=== PATIENT | female | born 1960 | race Hispanic/Latino ===

== ENCOUNTER 2016-10-25 19:16 | Emergency (ER) | payer OTHER ==
[2016-10-25 19:16] VITALS: BMI 28.3
[2016-10-25 19:43] VITALS: BP 109/68; RESP 16; O2SAT 98
--- NOTE | 2016-10-25 21:04 | ED PDOC ---
Arrival/HPI - General Chief Complaint: Upper Extremity Problem/Injury Time Seen by Provider: 10/25/16 19:51 Historian: Patient - History of Present Illness Narrative History of Present Illness (Text): 10/25/16 19:51 A 56 year old female prsents to the emergency department complaining of some discomfort to the right third digit after getting it caught in a door earlier today. Patient says she is able to move the finger but with discomfort. Patient reports history of of slight swelling to the finger due to a pervious injury. She states she has a ring on her finger which is tight and may be contributing to the finger problems as well. She denies any other injury at this time. PMD: Dr. Chowdhuyr Time/Duration: 1-3 hours Symptom Onset: Sudden Symptom Course: Unchanged Quality: Other Activities at Onset: Rest Context: Home Past Medical History - Provider Review Nursing Documentation Reviewed: Yes - Infectious Disease Hx of Infectious Diseases: None - Tetanus Immunization Tetanus Immunization: Unknown - Cardiac Hx Cardiac Disorders: No - Pulmonary Hx Respiratory Disorders: No - Neurological Hx Neurological Disorder: No - HEENT Hx HEENT Disorder: No - Renal Hx Renal Disorder: No - Endocrine/Metabolic Hx Endocrine Disorders: No - Hematological/Oncological Hx Blood Disorders: No - Integumentary Hx Dermatological Disorder: No - Musculoskeletal/Rheumatological Hx Musculoskeletal Disorders: Yes Hx Back Pain: Yes Other/Comment: "pinched nerve". "bulging disk" - Gastrointestinal Hx Gastrointestinal Disorders: Yes Hx Diverticulitis: Yes - Genitourinary/Gynecological Hx Genitourinary Disorders: No - Psychiatric Hx Psychophysiologic Disorder: No Hx Substance Use: No - Anesthesia Hx Anesthesia: Yes Hx Anesthesia Reactions: No Hx Malignant Hyperthermia: No - Suicidal Assessment Feels Threatened In Home Enviroment: No Family/Social History - Physician Review Nursing Documentation Reviewed: Yes Family/Social History: Unknown Family HX Smoking Status: Former Smoker Hx Alcohol Use: No Hx Substance Use: No Hx Substance Use Treatment: No Allergies/Home Meds Allergies/Adverse Reactions: Allergies No Known Allergies Allergy (Verified 09/12/15 12:17) Home Medications: Home Meds Medication Instructions Recorded Confirmed Aspirin [Ecotrin] 81 mg PO DAILY 10/25/16 10/25/16 Ergocalciferol (Vitamin D2) 50,000 unit PO MON 10/25/16 10/25/16 [Vitamin D2] Esomeprazole Magnesium [Nexium] 20 mg PO DAILY 10/25/16 10/25/16 Febuxostat [Uloric] 40 mg PO DAILY 10/25/16 10/25/16 Folic Acid 1 mg PO DAILY 10/25/16 10/25/16 Magnesium Oxide [Mag-Ox] 400 mg PO DAILY 10/25/16 10/25/16 Rosuvastatin Calcium [Crestor] 10 mg PO DAILY 10/25/16 10/25/16 Review of Systems - Physician Review All systems were reviewed & negative as marked: Yes - Review of Systems Constitutional: absent: Other (trauma) Musculoskeletal: Other (right hand third finger injury) Physical Exam Vital Signs Reviewed: Yes Vital Signs Temp Pulse Resp BP Pulse Ox 10/25/16 21:28 78 16 98 10/25/16 21:19 98.6 F 77 16 98 10/25/16 19:43 98.5 F 73 16 109/68 98 Temperature: Afebrile Blood Pressure: Normal Pulse: Regular Respiratory Rate: Normal Appearance: Positive for: Well-Appearing, Non-Toxic, Comfortable Pain Distress: None Mental Status: Positive for: Alert and Oriented X 3 - Systems Exam Head: Present: Atraumatic, Normocephalic Conjunctiva: Present: Normal Mouth: Present: Moist Mucous Membranes Neck: Present: Normal Range of Motion Upper Extremity: Present: Normal ROM, Neurovascularly Intact, Other (abrasion to the distal dorsal surface of the right 3rd digit with minimal swelling; tight fitting ring at the proximal right 3rd digit). No: Cyanosis, Edema, Erythema Lower Extremity: Present: Normal Inspection. No: Edema Neurological: Present: GCS=15, CN II-XII Intact, Speech Normal Skin: Present: Warm, Dry, Normal Color. No: Rashes Psychiatric: Present: Alert, Oriented x 3, Normal Insight, Normal Concentration Medical Decision Making ED Course and Treatment: 10/25/16 19:51 Impression: A 56 year old female with right hand third digit finger pain. Differential Diagnosis include but are not limited to: fractures Plan: -- Right hand 3rd digit X-ray -- Reassess and disposition Prior Visits: Notes and results from previous visits were reviewed. The patient last presented to the emergency department on 09/12/15 for evaluation of right buttock and right lower extremity pain. Progress Notes: Right Hand 3rd digit X-ray Impression: As read by me, no fracture. Patient ring was removed with a mechanical saw. Patient stated she felt much better after the procedure. On re-evaluation, the patient feels better and is in no acute distress. I have discussed the results and plan with the patient, who expresses understanding. Patient in agreement with plan to discharged home. Patient is stable for discharge. Patient was instructed to follow up with physician/clinic in 1-2 days or return if symptoms worsen or new concerning symptoms arise. - RAD Interpretation Radiology Orders: 10/25/16 20:00 HAND RIGHT 3RD DIGIT (FINGER) [RAD] Stat - Medication Orders Current Medication Orders: Discontinued Medications Ibuprofen (Motrin Tab) 600 mg PO STAT STA Stop: 10/25/16 21:23 Last Admin: 10/25/16 21:26 Dose: 600 MG MAR Pain/Vitals Document 10/25/16 21:26 [email or web address] (Rec: 10/25/16 21:27 [email or web address] [facility] [id number] Pain Reassessment Is This A Pain ReAssessment? No Sleep Is patient sleeping during reassessment? No Presence of Pain Presence of Pain Yes Pain Scale Used Pain Scale Used Numeric Location Left, Right or Bilateral Right Pain Location Body Site Hand Description Constant Intensity 7 Scale Used Numeric Pain Behavior Facial Grimacing Aggravating Factors Changing Position Aggravating Factors Changing Position Ibuprofen (Motrin Tab) Confirm Administered Dose 600 mg .ROUTE .STK-MED ONE Stop: 10/25/16 21:27 Last Admin: 10/25/16 21:28 Dose: - Scribe Statement The provider has reviewed the documentation as recorded by the Scribe Mehnaz Sales Provider Scribe Attestation: All medical record entries made by the Scribe were at my direction and personally dictated by me. I have reviewed the chart and agree that the record accurately reflects my personal performance of the history, physical exam, medical decision making, and the department course for this patient. I have also personally directed, reviewed, and agree with the discharge instructions and disposition. Disposition/Present on Arrival - Present on Arrival Any Indicators Present on Arrival: No History of DVT/PE: No History of Uncontrolled Diabetes: No Urinary Catheter: No History of Decub. Ulcer: No History Surgical Site Infection Following: None - Disposition Have Diagnosis and Disposition been Completed?: Yes Diagnosis: Finger sprain, Contusion Disposition: HOME/ ROUTINE Disposition Time: 21:05 Patient Plan: Discharge Condition: STABLE Discharge Instructions (ExitCare): Finger Sprain (ED), Contusion in Adults (ED) Additional Instructions: Maintain finger splint/advil as directed/follow up with the orthopedist Referrals: Kristopher Chowdhury MD [Primary Care Provider] - Follow up with primary Terrance Osei DO [Staff Provider] - Follow up with primary
[2016-10-25 21:19] VITALS: TEMP 98.6
[2016-10-25 21:29] VITALS: PULSE 78
--- NOTE | 2016-10-26 09:04 | RAD ---
PROCEDURE: Right Hand Radiographs. HISTORY: injury COMPARISON: None. FINDINGS: BONES: Normal. No fracture. JOINTS: Degenerative changes are seen in the 3rd DIP joint. There is no acute fracture SOFT TISSUES: Normal. OTHER FINDINGS: None. IMPRESSION: No acute findings
== END 2016-10-25 21:29 | disposition home or self-care (01) ==
LOC: ED 19:16
DX: S63.612A Unspecified sprain of right middle finger, initial encounter (principal); S60.031A Contusion of right middle finger without damage to nail, initial encounter; W23.0XXA Caught, crushed, jammed, or pinched between moving objects, initial encounter; Y92.009 Unspecified place in unspecified non-institutional (private) residence as the place of occurrence of the external cause; Z87.891 Personal history of nicotine dependence

== ENCOUNTER 2017-02-17 08:14 | Emergency (ER) | payer OTHER ==
[2017-02-17 08:14] VITALS: BMI 28.3
[2017-02-17 08:19] VITALS: TEMP 98.9; O2SAT 97
--- NOTE | 2017-02-17 08:50 | ED PDOC ---
Arrival/HPI - General Chief Complaint: ENT Problem Time Seen by Provider: 02/17/17 08:17 Historian: Patient - History of Present Illness Narrative History of Present Illness (Text): 02/17/17 08:45 56yo F with no reported significant PMHx here for evaluation of sore throat. She states that her symptoms started 2 days prior. She describes her symptoms as scratchy throat, right worse than the left. She states that the symptoms are associated with a frontal headache. Denies any fevers. Denies any cough. Does report some nasal drainage. Does report sick contacts: grand children and daughter. No further reported symptoms. She states that she came in for evaluation today as she is planning a vacation soon. 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 NKDA Time/Duration: < week Symptom Onset: Gradual Symptom Course: Worsening Quality: Other (scratchy) Severity Level: Mild Past Medical History - Provider Review Nursing Documentation Reviewed: Yes - Infectious Disease Hx of Infectious Diseases: None - Tetanus Immunization Tetanus Immunization: Unknown - Cardiac Hx Cardiac Disorders: No - Pulmonary Hx Respiratory Disorders: No - Neurological Hx Neurological Disorder: No - HEENT Hx HEENT Disorder: No - Renal Hx Renal Disorder: No - Endocrine/Metabolic Hx Endocrine Disorders: No - Hematological/Oncological Hx Blood Disorders: No - Integumentary Hx Dermatological Disorder: No - Musculoskeletal/Rheumatological Hx Musculoskeletal Disorders: Yes Hx Back Pain: Yes - Gastrointestinal Hx Gastrointestinal Disorders: Yes Hx Diverticulitis: Yes - Genitourinary/Gynecological Hx Genitourinary Disorders: No - Psychiatric Hx Psychophysiologic Disorder: No Hx Substance Use: No - Anesthesia Hx Anesthesia: Yes Hx Anesthesia Reactions: No Hx Malignant Hyperthermia: No - Suicidal Assessment Feels Threatened In Home Enviroment: No Family/Social History - Physician Review Nursing Documentation Reviewed: Yes Family/Social History: Unknown Family HX Smoking Status: Former Smoker Hx Alcohol Use: No Hx Substance Use: No Hx Substance Use Treatment: No Allergies/Home Meds Allergies/Adverse Reactions: Allergies No Known Allergies Allergy (Verified 02/17/17 08:21) Home Medications: Home Meds Medication Instructions Recorded Confirmed Aspirin [Ecotrin] 81 mg PO DAILY 10/25/16 02/17/17 Ergocalciferol (Vitamin D2) 50,000 unit PO MON 10/25/16 02/17/17 [Vitamin D2] Folic Acid 1 mg PO DAILY 10/25/16 02/17/17 Magnesium Oxide [Mag-Ox] 400 mg PO DAILY 10/25/16 02/17/17 Rosuvastatin Calcium [Crestor] 10 mg PO HS 10/25/16 02/17/17 Dexlansoprazole [Dexilant] 1 tab PO PRN PRN 02/17/17 02/17/17 Review of Systems - Physician Review All systems were reviewed & negative as marked: Yes - Review of Systems Constitutional: Normal. absent: Fevers Eyes: Normal ENT: Sore Throat, Rhinorrhea, Sinus Congestion. absent: Tinnitus, TMJ Pain Respiratory: absent: SOB, Cough, Sputum Cardiovascular: absent: Chest Pain, Calf Pain, KING Gastrointestinal: absent: Abdominal Pain, Nausea, Vomiting Genitourinary Female: absent: Dysuria, Frequency Musculoskeletal: absent: Back Pain Skin: absent: Skin Lesions, Laceration, Abscess Neurological: Headache. absent: Dizziness, Focal Weakness Physical Exam Vital Signs Reviewed: Yes Vital Signs Temp Pulse Resp BP Pulse Ox 02/17/17 08:16 98.9 F 93 H 15 117/77 97 Temperature: Afebrile Blood Pressure: Normal Pulse: Regular Respiratory Rate: Normal Appearance: Positive for: Well-Appearing, Non-Toxic, Comfortable Pain Distress: None Mental Status: Positive for: Alert and Oriented X 3 - Systems Exam Head: Present: Atraumatic, Normocephalic Pupils: Present: PERRL Extroacular Muscles: Present: EOMI Conjunctiva: Present: Normal Mouth: Present: Moist Mucous Membranes, Dry, Normal Tounge, Normal Teeth Pharnyx: Present: ERYTHEMA, Other (mild erythema, Right sided lymphadenopathy). No: EXUDATE, Uvular Deviation, Muffled/Hoarse Voice, Strider Nose (External): Present: Atraumatic Nose (Internal): Present: Rhinorrhea, Septal Deviation Neck: Present: Normal Range of Motion, Lymphadenopathy (mild right sided lymphadenopathy). No: Meningeal Signs, MIDLINE TENDERNESS, Paraspinal Tenderness, JVD Respiratory/Chest: Present: Clear to Auscultation, Good Air Exchange. No: Respiratory Distress, Accessory Muscle Use, Wheezes, Decreased Breath Sounds Cardiovascular: Present: Normal S1, S2. No: Murmurs Abdomen: No: Tenderness, Distention, Peritoneal Signs, Rebound, Guarding Upper Extremity: Present: Normal Inspection. No: Edema Lower Extremity: Present: Normal Inspection. No: CALF TENDERNESS Neurological: Present: GCS=15 Skin: Present: Warm, Dry, Normal Color. No: Rashes Psychiatric: Present: Alert, Oriented x 3 Medical Decision Making ED Course and Treatment: 02/17/17 08:55 56yo F here for sore throat and headache - Likely viral illness due sick contacts and symptoms - Will do Rapid Strep test - Reassess and dispo 02/17/17 09:21 Rapid Strep negative. Discussed results with patient. All questions and concerns addressed. Flonase recommended as directed. Patient understands and agrees with plan. - Lab Interpretations Lab Results: Lab Results 02/17/17 09:01: Grp A Beta Strep Ag Negative - PA / CLASSIFICATION OFFICER / Resident Statement / has reviewed & agrees with the documentation as recorded. / has examined the patient and agrees with the treatment plan. Disposition/Present on Arrival - Present on Arrival Any Indicators Present on Arrival: No History of DVT/PE: No History of Uncontrolled Diabetes: No Urinary Catheter: No History of Decub. Ulcer: No History Surgical Site Infection Following: None - Disposition Have Diagnosis and Disposition been Completed?: Yes Diagnosis: Viral illness Disposition: HOME/ ROUTINE Disposition Time: 09:37 Patient Plan: Discharge Condition: GOOD Discharge Instructions (ExitCare): Viral Syndrome (ED) Additional Instructions: 1. Follow up with your primary care physician within one week 2. Use OTC Flonase as directed for symptom relief 3. Return to the ER with any concerning symptoms Forms: [employer] (Taiwanese)
[2017-02-17 09:51] VITALS: BP 104/64; PULSE 65; RESP 17
== END 2017-02-17 09:51 | disposition home or self-care (01) ==
LOC: ED 08:14
DX: B34.9 Viral infection, unspecified (principal)

== ENCOUNTER 2017-10-08 06:02 | Emergency (ER) | payer OTHER, BC ==
[2017-10-08 06:08] VITALS: BMI 27.4
[2017-10-08 06:13] VITALS: RESP 18; O2SAT 99
[2017-10-08] MEDS ORDERED: Naproxen 550 mg Tab PO STA (06:25)
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
[2017-10-08 08:20] VITALS: BP 122/73; PULSE 66; TEMP 98.4
[2017-10-08] MEDS ORDERED: Oxycodone/Acetaminophen 5/325 mg Tab PO STA (08:53)
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
--- NOTE | 2017-10-08 11:10 | RAD ---
Radiographs of the right femur: AP and lateral radiographs of the right femur were obtained. Findings: There is no acute displaced fracture or bone destruction. There is diffuse bone demineralization. Bone alignment is normal. The right hip joint space is preserved. There is mild degenerative osteoarthrosis in the medial compartment of the knee joint. The periarticular soft tissues are normal. Impression: No acute fracture or dislocation.
--- NOTE | 2017-10-08 11:34 | RAD ---
Radiographs of the right knee AP and lateral radiographs of the right knee were obtained. Comparison: None Findings: There is diffuse bone demineralization. There is no acute fracture or bone destruction. Bone alignment is normal. There is mild degenerative osteoarthrosis in the medial compartment with mild reduced joint space and marginal spurring. There is a small suprapatellar joint effusion. The periarticular soft tissues are normal. Impression: No acute fracture or dislocation.
== END 2017-10-08 09:30 | disposition home or self-care (01) ==
LOC: ED 06:02
DX: T14.8XXA Other injury of unspecified body region, initial encounter (principal); V03.90XA Pedestrian on foot injured in collision with car, pick-up truck or van, unspecified whether traffic or nontraffic accident, initial encounter; Y92.410 Unspecified street and highway as the place of occurrence of the external cause; Z87.891 Personal history of nicotine dependence

== ENCOUNTER 2018-01-01 11:11 | Emergency (ER) | payer OTHER ==
[2018-01-01 11:12] VITALS: BMI 27.4
[2018-01-01 11:23] VITALS: TEMP 99.3; O2SAT 98
[2018-01-01] MEDS ORDERED: Sodium Chloride 0.9% 1,000 ML IV STA (11:51)
[2018-01-01 12:02] LABS: BASO # 0.02 K/mm3 (0.0-2.0); BASO % 0.4 % (0.0-3.0); EOS % 0.7 % (1.5-5.0); GRAN # 3.84 (1.4-6.5); HEMOGLOBIN 14.7 g/dL (12.0-16.0); LYMPH # 1.2 (1.2-3.4); LYMPH % 22.2 % (22.0-35.0); MEAN CELL VOLUME 87.9 fl (80.0-105.0); MEAN CORPUSCULAR HEMOGLOBIN 30.6 pg (25.0-35.0); MEAN CORPUSCULAR HGB CONC 34.8 g/dl (31.0-37.0); MEAN PLATELET VOLUME 9.8 fl (7.0-11.0); MONO # 0.3 (0.1-0.6); MONO % 5.7 % (1.0-6.0); RBC 4.81 10^6/uL (3.5-6.1); RED CELL DISTRIBUTION WIDTH 13.5 % (11.5-14.5); WHITE BLOOD COUNT 5.4 10^3/ul (4.5-11.0)
[2018-01-01 12:03] LABS: URINE BILIRUBIN NEGATIVE (NEGATIVE); URINE BLOOD MODERATE (NEGATIVE); URINE GLUCOSE (UA) NEGATIVE (NEGATIVE); URINE LEUKOCYTE ESTERASE SMALL Leu/uL (NEGATIVE); URINE PROTEIN NEGATIVE mg/dL (<30 mg/dL); URINE UROBILINOGEN 0.2 E.U./dL (<1 E.U./dL)
[2018-01-01 12:05] LABS: URINE APPEARANCE SL CLOUDY (CLEAR); URINE COLOR LIGHT YELLOW (YELLOW)
[2018-01-01 12:10] LABS: ALB/GLOB RATIO 1.3 (1.1-1.8); ALBUMIN 4.2 g/dL (3.0-4.8); ALT/SGPT 29 U/L (7-56); AST/SGOT 31 U/L (14-36); BLOOD UREA NITROGEN 15 mg/dL (7-21); CALCIUM 9.3 mg/dL (8.4-10.5); GFR NON-AFRICAN AMERICAN > 60; LIPASE 109 U/L (23-300)
[2018-01-01 12:33] LABS: INR 1.06 (0.93-1.08); PROTHROMBIN TIME 12.4 SECONDS (9.4-12.5)
[2018-01-01 12:56] LABS: URINE BACTERIA MANY (NEG)
--- NOTE | 2018-01-01 12:59 | ED PDOC ---
Arrival/HPI - General Chief Complaint: GI Problem Time Seen by Provider: 01/01/18 11:51 Historian: Patient - History of Present Illness Narrative History of Present Illness (Text): 01/01/18 12:51 57yo female with pmhx of diverticulitis, GERD who present with complaint of diarrhea x 5 since last night with intermittent nausea. Notes symptoms started 4days ago, after eating out. States she vomited one yesterday. Reports "queasiness" of her epigastric abdomen. States she have not had diarrhea since taking Immodium this morning. Denies fever. chills, melena, hematmesis, urinary symptoms, chest pain, sick contact, travel, any other complaint. Past Medical History - Provider Review Nursing Documentation Reviewed: Yes - Infectious Disease Hx of Infectious Diseases: None - Tetanus Immunization Tetanus Immunization: Unknown - Cardiac Hx Cardiac Disorders: No - Pulmonary Hx Respiratory Disorders: No - Neurological Hx Neurological Disorder: No - HEENT Hx HEENT Disorder: No - Renal Hx Renal Disorder: No - Endocrine/Metabolic Hx Endocrine Disorders: No - Hematological/Oncological Hx Blood Disorders: No - Integumentary Hx Dermatological Disorder: No - Musculoskeletal/Rheumatological Hx Musculoskeletal Disorders: Yes Hx Back Pain: Yes - Gastrointestinal Hx Gastrointestinal Disorders: Yes Hx Diverticulitis: Yes - Genitourinary/Gynecological Hx Genitourinary Disorders: No - Psychiatric Hx Psychophysiologic Disorder: No Hx Substance Use: No - Anesthesia Hx Anesthesia: Yes Hx Anesthesia Reactions: No Hx Malignant Hyperthermia: No - Suicidal Assessment Feels Threatened In Home Enviroment: No Family/Social History - Physician Review Nursing Documentation Reviewed: Yes Family/Social History: Unknown Family HX Smoking Status: Former Smoker Hx Alcohol Use: Yes Frequency of alcohol use: Socially Hx Substance Use: No Hx Substance Use Treatment: No Allergies/Home Meds Allergies/Adverse Reactions: Allergies No Known Allergies Allergy (Verified 01/01/18 11:15) Home Medications: Home Meds Medication Instructions Recorded Confirmed Aspirin [Ecotrin] 81 mg PO DAILY 10/25/16 10/08/17 Ergocalciferol (Vitamin D2) 50,000 unit PO MON 10/25/16 10/08/17 [Vitamin D2] Folic Acid 1 mg PO DAILY 10/25/16 10/08/17 Magnesium Oxide [Mag-Ox] 400 mg PO DAILY 10/25/16 10/08/17 Rosuvastatin Calcium [Crestor] 10 mg PO HS 10/25/16 10/08/17 Dexlansoprazole [Dexilant] 1 tab PO PRN PRN 02/17/17 10/08/17 Review of Systems - Physician Review All systems were reviewed & negative as marked: Yes - Review of Systems Constitutional: Normal Eyes: Normal ENT: Normal Respiratory: Normal Cardiovascular: Normal Gastrointestinal: Abdominal Pain, Diarrhea, Nausea. absent: Constipation, Vomiting, Hematochezia, Hematemesis Genitourinary Female: Normal Musculoskeletal: Normal Skin: Normal Neurological: Normal Endocrine: Normal Hemo/Lymphatic: Normal Psychiatric: Normal Physical Exam Vital Signs Reviewed: Yes Vital Signs Temp Pulse Resp BP Pulse Ox 01/01/18 13:26 98 01/01/18 13:07 74 17 115/75 98 01/01/18 11:12 99.3 F 78 18 113/71 98 Temperature: Afebrile Blood Pressure: Normal Pulse: Regular Respiratory Rate: Normal Appearance: Positive for: Well-Appearing, Non-Toxic, Comfortable Pain Distress: None Mental Status: Positive for: Alert and Oriented X 3 - Systems Exam Head: Present: Atraumatic, Normocephalic Pupils: Present: PERRL Extroacular Muscles: Present: EOMI Conjunctiva: Present: Normal Mouth: Present: Moist Mucous Membranes Neck: Present: Normal Range of Motion Respiratory/Chest: Present: Clear to Auscultation, Good Air Exchange. No: Respiratory Distress, Accessory Muscle Use Cardiovascular: Present: Regular Rate and Rhythm, Normal S1, S2. No: Murmurs Abdomen: Present: Other (Soft). No: Tenderness, Distention, Peritoneal Signs, Rebound, Guarding, McBurney's Point Tender, Rovsing's Sign Present Back: Present: Normal Inspection Upper Extremity: Present: Normal Inspection. No: Cyanosis, Edema Lower Extremity: Present: Normal Inspection. No: Edema Neurological: Present: GCS=15, CN II-XII Intact, Speech Normal Skin: Present: Warm, Dry, Normal Color. No: Rashes Psychiatric: Present: Alert, Oriented x 3, Normal Insight, Normal Concentration Medical Decision Making ED Course and Treatment: 01/01/18 20:06 Pt was comfortable in ED. Her lab was reviewed and she was treated with Keflex for UTI . Result was DW the pt and she was referred to her PMD. EKG NSR 82bpm - Lab Interpretations Lab Results: 01/01/18 11:35 01/01/18 11:35 Lab Results 01/01/18 13:00: pO2 50, VBG pH 7.30 L, VBG pCO2 50.0, VBG HCO3 24.6, VBG Total CO2 26.1, VBG O2 Sat (Calc) 87.4 H, VBG Base Excess -2.4 L, VBG Potassium 4.2, Glucose 63 L, Lactate 1.3, FiO2 21.0, Sodium 137.0, Chloride 104.0, Venous Blood Potassium 4.2 01/01/18 11:35: Urine Color Light yellow, Urine Appearance Sl cloudy, Urine pH 6.0, Ur Specific Welch 1.025, Urine Protein Negative, Urine Glucose (UA) Negative, Urine Ketones 15 H, Urine Blood Moderate H, Urine Nitrate Negative, Urine Bilirubin Negative, Urine Urobilinogen 0.2, Ur Leukocyte Esterase Small H , Urine RBC 10 - 15, Urine WBC 5 - 10, Ur Epithelial Cells 4 - 5, Urine Bacteria Many, Urine Other Uyeast 01/01/18 11:35: Sodium 139, Potassium 4.6, Chloride 101, Carbon Dioxide 24, Anion Gap 18, BUN 15, Creatinine 0.8, Est GFR ( Amer) > 60, Est GFR (Non- Af Amer) > 60, Random Glucose 77, Calcium 9.3, Magnesium 1.8, Total Bilirubin 0.7, AST 31, ALT 29, Alkaline Phosphatase 117, Total Protein 7.4, Albumin 4.2, Globulin 3.3, Albumin/Globulin Ratio 1.3, Lipase 109 01/01/18 11:35: PT 12.4, INR 1.06, APTT 28.0 01/01/18 11:35: WBC 5.4, RBC 4.81, Hgb 14.7, Hct 42.3, MCV 87.9, MCH 30.6, MCHC 34.8, RDW 13.5, Plt Count 195, MPV 9.8, Gran % 71.0 H, Lymph % (Auto) 22.2, [place] % (Auto) 5.7, Eos % (Auto) 0.7 L, Baso % (Auto) 0.4, Gran # 3.84, Lymph # ( Auto) 1.2, [place] # (Auto) 0.3, Eos # (Auto) 0.0, Baso # (Auto) 0.02 - Medication Orders Current Medication Orders: Discontinued Medications Famotidine (Pepcid) 20 mg IVP STAT STA Stop: 01/01/18 11:52 Last Admin: 01/01/18 12:59 Dose: 20 mg IVP Administration Document 01/01/18 12:59 SF (Rec: 01/01/18 12:59 SF [id number]) Charges for Administration # of IVP Administrations 1 Sodium Chloride (Sodium Chloride 0.9%) 1,000 mls @ 1,000 mls/hr IV .Q1H STA Stop: 01/01/18 12:50 Last Admin: 01/01/18 11:51 Dose: 1,000 mls/hr eMAR Start Stop Document 01/01/18 11:51 SF (Rec: 01/01/18 12:59 SF [id number]) Intravenous Solution Start Date 01/01/18 Start Time 11:51 End Date 01/01/18 End time 12:51 Total Infusion Time 60 Nitrofurantoin Macrocrystals (Macrobid) 100 mg PO ONCE STA PRN Reason: Protocol Stop: 01/01/18 13:01 Last Admin: 01/01/18 13:24 Dose: 100 mg Ondansetron HCl (Zofran Inj) 4 mg IVP STAT STA Stop: 01/01/18 11:52 Last Admin: 01/01/18 12:59 Dose: 4 mg IVP Administration Document 01/01/18 12:59 SF (Rec: 01/01/18 12:59 SF [id number]) Charges for Administration # of IVP Administrations 1 Disposition/Present on Arrival - Present on Arrival Any Indicators Present on Arrival: No History of DVT/PE: No History of Uncontrolled Diabetes: No Urinary Catheter: No History of Decub. Ulcer: No History Surgical Site Infection Following: None - Disposition Have Diagnosis and Disposition been Completed?: Yes Diagnosis: UTI (urinary tract infection), Abdominal pain Disposition: HOME/ ROUTINE Disposition Time: 13:10 Patient Plan: Discharge Condition: STABLE Discharge Instructions (ExitCare): Urinary Tract Infections in Adults, Acute Abdomen (Belly Pain), Nausea and Vomiting, Adult Additional Instructions: Follow up with your doctor Drink plenty of fluid Return to ED for any new or worsening symptoms Prescriptions: Nitrofurantoin Macrocrystals [Macrobid] 100 mg PO BID #14 cap Ondansetron ODT [Zofran ODT] 4 mg PO Q6 #5 odt Referrals: [facility] at [facility] [place] [Outside] - Follow up with primary Forms: [employer] (Azeri), WORK NOTE
[2018-01-01 13:07] VITALS: BP 115/75; PULSE 74; RESP 17
[2018-01-01 13:17] LABS: VENOUS BLOOD GAS BASE EXCESS -2.4 mmol/L (0.0-2.0); VENOUS BLOOD GAS PO2 50 mm/Hg (30-55)
--- NOTE | 2018-01-01 22:49 | CARD ---
APPROVED REPORT EKG Measurement Heart [id number] <Conclusion> Normal sinus rhythm Normal ECG
== END 2018-01-01 13:26 | disposition home or self-care (01) ==
LOC: ED 11:11
DX: N39.0 Urinary tract infection, site not specified (principal); R10.9 Unspecified abdominal pain; K21.9 Gastro-esophageal reflux disease without esophagitis; Z87.891 Personal history of nicotine dependence
CPT/HCPCS: 80053; 81001; 82803; 83690; 83735; 85025; 85610; 85730; 87086; 93005; 96361; 96374; 96375; 99285; J2405; J7030

== ENCOUNTER 2018-09-25 11:26 | Outpatient (CLI) | payer OTHER | END 2018-09-25 11:27 | disposition home or self-care (01) | LOC: RAD 11:26 | DX: M81.0 Age-related osteoporosis without current pathological fracture (principal) ==

== ENCOUNTER 2018-10-22 06:18 | Emergency (ER) | payer OTHER ==
[2018-10-22 06:18] VITALS: BMI 27.4
[2018-10-22 06:42] VITALS: TEMP 98.2
--- NOTE | 2018-10-22 07:12 | ED PDOC ---
Arrival/HPI - General Chief Complaint: Hip Pain Time Seen by Provider: 10/22/18 07:00 - History of Present Illness Narrative History of Present Illness (Text): 58 yr old female w/ hx of diverticulitis, Hypercholesterolemia, thyroid nodule, sciatica p/w llq abdominal pain radiating suprapubically x2d. She notes she is concerned that the throbbing pain in her LLQ feels like diverticulitis. She notes that she did not any pain meds for the pain and did not have any trauma or fall. No constipation or diarrhea or dark or bloody stool. Pt is post menopausal x3 years and denies any vaginal discharge or rashes / ulcers. No nausea or vomiting. No chest pain or shortness of breath. She notes increased urination but denies any hematuria. No other complaints. Past Medical History - Infectious Disease Hx of Infectious Diseases: None - Tetanus Immunization Tetanus Immunization: Unknown - Cardiac Hx Cardiac Disorders: No - Pulmonary Hx Respiratory Disorders: No - Neurological Hx Neurological Disorder: No - HEENT Hx HEENT Disorder: No - Renal Hx Renal Disorder: No - Endocrine/Metabolic Hx Endocrine Disorders: No - Hematological/Oncological Hx Blood Disorders: No - Integumentary Hx Dermatological Disorder: No - Musculoskeletal/Rheumatological Hx Musculoskeletal Disorders: Yes Hx Back Pain: Yes - Gastrointestinal Hx Gastrointestinal Disorders: Yes Hx Diverticulitis: Yes - Genitourinary/Gynecological Hx Genitourinary Disorders: No - Psychiatric Hx Psychophysiologic Disorder: No Hx Substance Use: No - Anesthesia Hx Anesthesia: Yes Hx Anesthesia Reactions: No Hx Malignant Hyperthermia: No - Suicidal Assessment Feels Threatened In Home Enviroment: No Family/Social History Family/Social History: Unknown Family HX Smoking Status: Former Smoker Hx Alcohol Use: Yes Frequency of alcohol use: Socially Hx Substance Use: No Hx Substance Use Treatment: No Allergies/Home Meds Allergies/Adverse Reactions: Allergies No Known Allergies Allergy (Verified 01/01/18 11:15) Home Medications: Home Meds Medication Instructions Recorded Confirmed Aspirin [Ecotrin] 81 mg PO DAILY 10/25/16 10/08/17 Ergocalciferol (Vitamin D2) 50,000 unit PO MON 10/25/16 10/08/17 [Vitamin D2] Folic Acid 1 mg PO DAILY 10/25/16 10/08/17 Magnesium Oxide [Mag-Ox] 400 mg PO DAILY 10/25/16 10/08/17 Rosuvastatin Calcium [Crestor] 10 mg PO HS 10/25/16 10/08/17 Dexlansoprazole [Dexilant] 1 tab PO PRN PRN 02/17/17 10/08/17 Review of Systems - Review of Systems Constitutional: absent: Fatigue, Weight Change Eyes: absent: Vision Changes ENT: absent: Hearing Changes Respiratory: absent: SOB, Cough Cardiovascular: absent: Chest Pain, Palpitations Gastrointestinal: Abdominal Pain. absent: Stool Changes, Constipation, Diarrhea, Nausea, Vomiting, Appetite Changes, Hematochezia, Hematemesis, Anorexia, Food Intolerance Genitourinary Female: Frequency. absent: Dysuria, Hematuria, Urine Output Changes Musculoskeletal: absent: Arthralgias, Back Pain, Neck Pain, Joint Swelling Skin: absent: Rash, Pruritis Neurological: absent: Headache, Dizziness Endocrine: absent: Diaphoresis, Polyuria Hemo/Lymphatic: absent: Adenopathy Psychiatric: absent: Anxiety, Depression Physical Exam Vital Signs Reviewed: Yes Vital Signs Temp Pulse Resp BP Pulse Ox 10/22/18 06:41 98.2 F 79 16 124/76 97 Temperature: Afebrile Blood Pressure: Normal Pulse: Regular Respiratory Rate: Normal Appearance: Positive for: Well-Appearing Pain Distress: Mild Mental Status: Positive for: Alert and Oriented X 3 - Systems Exam Head: Present: Atraumatic Pupils: Present: PERRL Extroacular Muscles: Present: EOMI Conjunctiva: Present: Normal Ears: Present: Normal, NORMAL TM Mouth: Present: Moist Mucous Membranes Pharnyx: Present: Normal. No: ERYTHEMA, EXUDATE, TONSILS ENLARGED Neck: Present: Normal Range of Motion. No: Meningeal Signs, MIDLINE TENDERNESS Respiratory/Chest: Present: Clear to Auscultation, Good Air Exchange. No: Respiratory Distress Cardiovascular: Present: Regular Rate and Rhythm, Murmurs, Normal S1, S2 Abdomen: Present: Tenderness (llq, suprapubic ). No: Distention, Normal Bowel Sounds Back: Present: Normal Inspection. No: CVA Tenderness, Midline Tenderness Upper Extremity: Present: Normal Inspection, NORMAL PULSES. No: Cyanosis, Edema, Normal ROM Lower Extremity: Present: Normal Inspection, NORMAL PULSES. No: Edema, CALF TENDERNESS Neurological: Present: GCS=15, CN II-XII Intact, Speech Normal, Motor Func Grossly Intact Skin: Present: Warm, Dry Psychiatric: Present: Alert, Oriented x 3, Normal Insight Medical Decision Making ED Course and Treatment: 58 yr old female w/ hx of diverticulitis, Hypercholesterolemia, thyroid nodule, sciatica p/w llq abdominal pain radiating suprapubically x2d. No fall or trauma. No dark or bloody stool. No vaginal d/c. Given hx of diverituclitis and similiar symptoms likely diverticulitis. Possible UTI as well given urinary frequency, no CVAT though, so pyelo less likely. Pt well appearing comfortable, unlikely kidney stone. Pt denies any ripping pain to the back. She denies any hip pain. 10/22/18 09:00 labs largely unremarkable except Urinalysis, +UTI. Pt without CVAT pending imaging results pt in NAD 10/22/18 09:30 Diverticulitis on imaging, will rx with cipro and flagyl for home as pt it well appearing pending US result. Transvaginal Ultrasound Dictator : Bruna Porter MD Report Date : 10/22/2018 09:30:41 IMPRESSION: 1. No significant abnormality in the uterus or endometrium. 2. Both ovaries are not visualized. No adnexal mass. PROCEDURE: CT Abdomen and Pelvis with contrast Dictator : Bruna Porter MD Report Date : 10/22/2018 09:21:27 IMPRESSION: Acute sigmoid diverticulitis. No micro perforation or abscess. 10/22/18 09:38 pt in NAD, endorsed findings regarding diverticulitis and no TVUS findings, as well as ABX script, return indications. also endorsed need to follow up with urology and GI and PMD, she is agreeable. 10/22/18 09:40 - RAD Interpretation Radiology Orders: 10/22/18 07:07 ABDOMEN & PELVIS [ABD & PELVIS IV CONTRAST ONLY] [CT] Stat - Medication Orders Current Medication Orders: Sodium Chloride (Sodium Chloride 0.9%) 1,000 mls @ 100 mls/hr IV .Q10H INGRIS Disposition/Present on Arrival - Present on Arrival Any Indicators Present on Arrival: No History of DVT/PE: No History of Uncontrolled Diabetes: No Urinary Catheter: No History of Decub. Ulcer: No History Surgical Site Infection Following: None - Disposition Have Diagnosis and Disposition been Completed?: Yes Diagnosis: UTI (urinary tract infection), Sigmoid diverticulitis Disposition: HOME/ ROUTINE Disposition Time: 07:46 Patient Problems: Current Active Problems Problem Status Onset UTI (urinary tract infection) Acute Sigmoid diverticulitis Acute Condition: STABLE Discharge Instructions (ExitCare): Diverticulitis (DC), Urinary Tract Infection, Adult (DC) Additional Instructions: HELGA VIRK, thank you for letting us take care of you today. Your provider was José Antonio Aponte and you were treated for LOWER LFT PELVIC PAIN. The emergency medical care you received today was directed at your acute symptoms. If you were prescribed any medication, please fill it and take as directed. It may take several days for your symptoms to resolve. Return to the Emergency Department if your symptoms worsen, do not improve, or if you have any other problems. Please contact your doctor or call one of the physicians/clinics you have been referred to that are listed on the Patient Visit Information form that is included in your discharge packet. Bring any paperwork you were given at discharge with you along with any medications you are taking to your follow up visit. Our treatment cannot replace ongoing medical care by a primary care provider outside of the emergency department. Thank you for allowing the [facility] team to be part of your care today. If you had an X-Ray or CT scan: A Radiologist will review the ED reading if any change in treatment is needed we will contact you. If you had a blood, urine, or wound culture: It will take several days for the results, if any change in treatment is needed we will contact you. If you had an STI test: It will take 48 hours for the results. Please call after 1 week if you have not heard back. Prescriptions: Ciprofloxacin HCl [Cipro] 500 mg PO BID 14 Days #28 tablet Metronidazole [Flagyl] 500 mg PO TID 14 Days #42 tablet Referrals: [facility] [Outside] - Follow up with primary [facility] [Outside] - Follow up with primary [facility] [place]] - Follow up with primary Kristopher Chowdhury MD [Primary Care Provider] - Follow up with primary Milena Pérez MD [Staff Provider] - Follow up with primary Solo Ro MD [Staff Provider] - Follow up with primary Forms: [facility] (Slovenian)
[2018-10-22] MEDS ORDERED: Sodium Chloride 0.9% 1,000 ML IV SCH (07:15)
[2018-10-22 07:20] LABS: BASO # 0.03 K/mm3 (0.0-2.0); BASO % 0.4 % (0.0-3.0); EOS # 0.1 (0.0-0.7); EOS % 1.4 % (1.5-5.0); HEMOGLOBIN 13.9 g/dL (12.0-16.0); LYMPH # 1.5 (1.2-3.4); LYMPH % 17.7 % (22.0-35.0); MEAN CELL VOLUME 91.1 fl (80.0-105.0); MEAN CORPUSCULAR HEMOGLOBIN 30.8 pg (25.0-35.0); MEAN CORPUSCULAR HGB CONC 33.8 g/dl (31.0-37.0); MEAN PLATELET VOLUME 10.5 fl (7.0-11.0); MONO # 0.8 (0.1-0.6); MONO % 9.7 % (1.0-6.0); RBC 4.51 10^6/uL (3.5-6.1); RED CELL DISTRIBUTION WIDTH 13.6 % (11.5-14.5); WHITE BLOOD COUNT 8.4 10^3/uL (4.5-11.0)
[2018-10-22 07:26] LABS: PH,URINE 6.5 (4.7-8.0); URINE BILIRUBIN NEGATIVE (NEGATIVE); URINE BLOOD TRACE-LYSED (NEGATIVE); URINE GLUCOSE (UA) NEGATIVE (NEGATIVE); URINE LEUKOCYTE ESTERASE MODERATE Leu/uL (NEGATIVE); URINE PROTEIN NEGATIVE mg/dL (<30 mg/dL); URINE UROBILINOGEN 0.2 E.U./dL (<1 E.U./dL)
[2018-10-22 07:35] LABS: URINE APPEARANCE CLEAR (CLEAR); URINE COLOR YELLOW (YELLOW)
[2018-10-22 07:38] LABS: URINE WBC 20 - 25 /hpf (0-6)
[2018-10-22 07:39] LABS: URINE BACTERIA SMALL /hpf
[2018-10-22 08:00] LABS: ALB/GLOB RATIO 1.2 (1.1-1.8); ALBUMIN 4.3 g/dL (3.0-4.8); ALT/SGPT 20 U/L (7-56); AST/SGOT 30 U/L (14-36); BLOOD UREA NITROGEN 15 mg/dL (7-21); CALCIUM 9.6 mg/dL (8.4-10.5); GFR NON-AFRICAN AMERICAN > 60; LIPASE 135 U/L (23-300)
[2018-10-22] MEDS ORDERED: Iohexol 350 MG/100 ML VIAL ONE (08:13)
[2018-10-22 08:37] VITALS: BP 117/69; PULSE 83; RESP 18; O2SAT 100
--- NOTE | 2018-10-22 09:25 | CT ---
Date of service: 10/22/2018 PROCEDURE: CT Abdomen and Pelvis with contrast HISTORY: llq pain, hx of diverticulitis COMPARISON: 01/08/2015. TECHNIQUE: CT scan of the abdomen and pelvis was performed after administration of intravenous contrast. Oral contrast was not administered. Coronal and sagittal reformatted images were obtained. Contrast dose: 100 mL Omnipaque 350 Radiation dose: Total exam DLP = 471.35 mGy-cm. This CT exam was performed using one or more of the following dose reduction techniques: Automated exposure control, adjustment of the mA and/or kV according to patient size, and/or use of iterative reconstruction technique. FINDINGS: LOWER THORAX: The visualized lungs are clear. LIVER: Normal in size with homogeneous enhancement. There are stable simple cysts, larger in the left hepatic lobe, the largest measures 2.6 x 2.6 cm. No gross lesion or ductal dilatation. GALLBLADDER AND BILE DUCTS: Well distended. No calcified gallstones, wall thickening or pericholecystic fluid. PANCREAS: Normal in size with homogeneous enhancement. No gross lesion or ductal dilatation. SPLEEN: Normal in size and appearance. There is a stable subcapsular cyst in the interpolar region posteriorly. ADRENALS: No discrete nodule. KIDNEYS AND URETERS: Normal in size with homogeneous enhancement. No hydronephrosis. No solid mass. VASCULATURE: No aortic aneurysm. There are no aortic atherosclerotic calcifications or mural plaque present. BOWEL: Evaluation of the bowel is limited in the absence of oral contrast. There is fecalization of small bowel contents. The small bowel loops are normal in caliber. There is extensive left colonic diverticulosis. There is mild circumferential mural thickening in the sigmoid colon with mild pericolonic inflammatory changes. No evidence of micro perforation or abscess. APPENDIX: Normal appendix. PERITONEUM: No free fluid. No free air. LYMPH NODES: No enlarged lymph nodes. BLADDER: Partially decompressed. REPRODUCTIVE: The uterus is normal in size. BONES: No acute fracture. There is diffuse bone demineralization and multilevel degenerative changes in the spine. OTHER FINDINGS: There is a moderate size sliding hiatal hernia. IMPRESSION: Acute sigmoid diverticulitis. No micro perforation or abscess.
--- NOTE | 2018-10-22 09:34 | US ---
Date of service: 10/22/2018 HISTORY: llq pain, hx of cyst COMPARISON: None available. TECHNIQUE: Transvaginal pelvic ultrasound was performed. FINDINGS: UTERUS: Measures 6.9 x 3.4 x 5.0 cm. Anteverted, normal in size and appearance. No fibroid or other mass lesion seen. ENDOMETRIUM: Measures 4.0 mm in diameter. Unremarkable. CERVIX: No cervical abnormality identified. RIGHT OVARY: Not visualized. LEFT OVARY: Not visualized. FREE FLUID: No significant free fluid noted. OTHER FINDINGS: None. IMPRESSION: 1. No significant abnormality in the uterus or endometrium. 2. Both ovaries are not visualized. No adnexal mass.
== END 2018-10-22 09:45 | disposition home or self-care (01) ==
LOC: ED 06:18
DX: K57.32 Diverticulitis of large intestine without perforation or abscess without bleeding (principal); N39.0 Urinary tract infection, site not specified
CPT/HCPCS: 74177; 76830; 80053; 81001; 83690; 85025; 87086; 99283; J7030; Q9967

== ENCOUNTER 2018-11-07 08:23 | Outpatient (CLI) | payer OTHER | END 2018-11-07 08:24 | disposition home or self-care (01) | LOC: RAD 08:23 ==